=== PATIENT | male | born 1995 | race Caucasian/White ===

== ENCOUNTER 2017-07-23 20:37 | Emergency (ER) | payer OTHER ==
[~2017-07-23] VITALS: Ht 170.2 cm; Wt 152.0 kg
[2017-07-23 20:45] VITALS: TEMP 36.5; Ht 170.2 cm; Wt 152.0 kg
[2017-07-23] MEDS ORDERED: DILTIAZEM HCL 5 MG/ML 5 ML VIAL IV STA (21:11)
[2017-07-23] MEDS ORDERED: DILTIAZEM BOLUS / DRIP IV STA (21:24)
--- NOTE | 2017-07-23 21:29 | DIAGNOSTIC IMAGING REPORT ---
SINGLE VIEW CHEST CLINICAL HISTORY: Fever. Sepsis. FINDINGS: 2 AP, portable, upright chest radiographs are obtained. No prior studies are available for comparison at the time of dictation. The examination is degraded by portable technique and patient rotation. The cardiomediastinal silhouette is unremarkable. The lungs and pleural spaces are clear. No pneumothorax is seen. The bony thorax is grossly intact. IMPRESSION: No active disease in the chest. Electronically signed by: Yvon Mckenna M.D. 07/23/2017 9:28 PM Dictated Date/Time: 07/23/2017 9:28 PM
[2017-07-23 21:37] LABS: BASO % 0.4 %; BASO ABS # 0.05 K/uL (0-0.2); EOS ABS # 0.36 K/uL (0-0.5); HEMATOCRIT 46.8 % (42-52); HEMOGLOBIN 16.7 g/dL (14.0-18.0); IG# 0.12 K/uL (0.00-0.02); LYMPH % 33.2 %; LYMPH ABS # 4.02 K/uL (1.2-3.4); MEAN CELL VOLUME 83.9 fL (80-100); MEAN CORPUSCULAR HEMOGLOBIN 29.9 pg (25-34); MEAN CORPUSCULAR HGB CONC 35.7 g/dl (32-36); MEAN PLATELET VOLUME 10.2 fL (7.4-10.4); MONO % 9.7 %; MONO ABS # 1.18 K/uL (0.11-0.59); NEUT % 52.7 %; NEUT ABS # 6.38 K/uL (1.4-6.5); PLATELET COUNT 298 K/uL (130-400); RED CELL DISTRIBUTION WIDTH CV 12.8 % (11.5-14.5); RED CELL DISTRIBUTION WIDTH SD 38.2 fL (36.4-46.3); WHITE BLOOD COUNT 12.11 K/uL (4.8-10.8)
[2017-07-23] MEDS: DILTIAZEM HCL INJ 125 MG in DEXTROSE 5% 100ML IV PRN ×2 (21:44→23:25)
[2017-07-23 22:05] VITALS: O2SAT 97
[2017-07-23 22:46] LABS: ALBUMIN 3.8 gm/dl (3.4-5.0); ALT/SGPT 73 U/L (12-78); BLOOD UREA NITROGEN 11 mg/dl (7-18); CALCIUM 9.3 mg/dl (8.5-10.1); CARBON DIOXIDE 24 mmol/L (21-32); CREATININE 0.82 mg/dl (0.60-1.40); GLUCOSE 107 mg/dl (70-99); LIPASE 93 U/L (73-393); SODIUM 138 mmol/L (136-145)
[2017-07-23 22:48] LABS: INR 0.9 (0.9-1.1); PTT PATIENT 24.5 SECONDS (21.0-31.0)
[2017-07-23 22:57] LABS: ALKALINE PHOSPHATASE 75 U/L (45-117); AST/SGOT 35 U/L (15-37); CKMB 1.8 ng/ml (0.5-3.6); TOTAL PROTEIN 8.1 gm/dl (6.4-8.2)
[2017-07-23 23:04] VITALS: BP 125/102; PULSE 106; O2SAT 98
--- NOTE | 2017-07-23 23:23 | EMERGENCY ROOM VISIT NOTE ---
History Report prepared by Paulaibnayely: Reji Melo Under the Supervision of: Dr. Fran Cooper D.O. First contact with patient: 20:55 Chief Complaint: IRREGULAR HEARTBEAT Stated Complaint: IRREGULAR AND FAST HEART BEAT AFTER SLEEPING History of Present Illness The patient is a 22 year old male who presents to the Emergency Room with complaints of a constant irregular heart beat that suddenly began 15 hours ago. He rates his pain as 0/10. The patient reports that he went to class, took a nap , and states that he woke up the same sensation of an irregular and fast heart beat this afternoon. 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 He states that he was heavily drinking on 07/19 and had a hangover the next day. Source of History: patient Onset: 15 hours ago Position: other (heart) Symptom Intensity: pain rated as 0/10 Quality: other (irregular heart rate) Timing: constant Associated Symptoms: + SOB Review of Systems See HPI for pertinent positives & negatives. A total of 10 systems reviewed and were otherwise negative. Family History Cancer Social History Smoking Status: Current Some Day Smoker Alcohol Use: heavy Marital Status: single Occupation Status: student Current/Historical Medications No Active Prescriptions or Reported Meds Allergies Coded Allergies: Azithromycin (Unverified Allergy, Severe, hives, 07/23/17) Physical Exam Vital Signs Date Time Temp Pulse Resp B/P (MAP) Pulse Ox O2 Delivery O2 Flow Rate FiO2 07/23/17 23:04 106 15 125/102 98 Room Air 07/23/17 22:50 98 07/23/17 22:05 97 Room Air 07/23/17 21:32 103 16 137/99 97 Room Air 07/23/17 21:00 149 07/23/17 20:57 98 Room Air 07/23/17 20:45 36.5 105 20 141/78 97 Room Air Physical Exam CONSTITUTIONAL/VITAL SIGNS: Reviewed / noted above. GENERAL: Non-toxic in appearance. INTEGUMENTARY: Warm, dry, and [place]. HEAD: Normocephalic. EYES: without scleral icterus or trauma. ENT/OROPHARYNX: clear and moist. LYMPHADENOPATHY/NECK: Is supple without lymphadenopathy or meningismus. RESPIRATORY: Lungs clear and equal. CARDIOVASCULAR: Rapid Irregular heart rate. GI/ABDOMEN: Soft and nontender. No organomegaly or pulsatile mass. No rebound or guarding. Normal bowel sounds. EXTREMITIES: Warm and well perfused. BACK: No CVA tenderness. NEUROLOGICAL: Intact without focal deficits. PSYCHIATRIC: normal affect. MUSCULOSKELETAL: Normally developed with good muscle tone. Medical Decision & Procedures ER Provider Diagnostic Interpretation: Radiology results as stated below per my review and radiologist interpretation: SINGLE VIEW CHEST CLINICAL HISTORY: Fever. Sepsis. FINDINGS: 2 AP, portable, upright chest radiographs are obtained. No prior studies are available for comparison at the time of dictation. The examination is degraded by portable technique and patient rotation. The cardiomediastinal silhouette is unremarkable. The lungs and pleural spaces are clear. No pneumothorax is seen. The bony thorax is grossly intact. IMPRESSION: No active disease in the chest. Electronically signed by: Yvon Mckenna M.D. 07/23/2017 9:28 PM Dictated Date/Time: 07/23/2017 9:28 PM Laboratory Results 07/23/17 21:10 Red Blood Count 5.58, Mean Corpuscular Volume 83.9, Mean Corpuscular Hemoglobin 29.9, Mean Corpuscular Hemoglobin Concent 35.7, Mean Platelet Volume 10.2, Neutrophils (%) (Auto) 52.7, Lymphocytes (%) (Auto) 33.2, Monocytes (%) (Auto) 9.7, Eosinophils (%) (Auto) 3.0, Basophils (%) (Auto) 0.4, Neutrophils # (Auto) 6.38, Lymphocytes # (Auto) 4.02, Monocytes # (Auto) 1.18, Eosinophils # (Auto) 0.36, Basophils # (Auto) 0.05 07/23/17 22:09 Test 07/23/17 21:10 07/23/17 22:09 07/23/17 22:15 White Blood Count 12.11 K/uL (4.8-10.8) Red Blood Count 5.58 M/uL (4.7-6.1) Hemoglobin 16.7 g/dL (14.0-18.0) Hematocrit 46.8 % (42-52) Mean Corpuscular Volume 83.9 fL (80-100) Mean Corpuscular Hemoglobin 29.9 pg (25-34) Mean Corpuscular Hemoglobin Concent 35.7 g/dl (32-36) Platelet Count 298 K/uL (130-400) Mean Platelet Volume 10.2 fL (7.4-10.4) Neutrophils (%) (Auto) 52.7 % Lymphocytes (%) (Auto) 33.2 % Monocytes (%) (Auto) 9.7 % Eosinophils (%) (Auto) 3.0 % Basophils (%) (Auto) 0.4 % Neutrophils # (Auto) 6.38 K/uL (1.4-6.5) Lymphocytes # (Auto) 4.02 K/uL (1.2-3.4) Monocytes # (Auto) 1.18 K/uL (0.11-0.59) Eosinophils # (Auto) 0.36 K/uL (0-0.5) Basophils # (Auto) 0.05 K/uL (0-0.2) RDW Standard Deviation 38.2 fL (36.4-46.3) RDW Coefficient of Variation 12.8 % (11.5-14.5) Immature Granulocyte % (Auto) 1.0 % Immature Granulocyte # (Auto) 0.12 K/uL (0.00-0.02) Prothrombin Time 9.8 SECONDS (9.0-12.0) Prothromb Time International Ratio 0.9 (0.9-1.1) Activated Partial Thromboplast Time 24.5 SECONDS (21.0-31.0) Partial Thromboplastin Ratio 0.9 D-Dimer 320 ug/L FEU (0-500) Anion Gap 9.0 mmol/L (3-11) Est Creatinine Clear Calc Drug Dose 200.8 ml/min Estimated GFR () 145.5 Estimated GFR (Non- 125.5 BUN/Creatinine Ratio 13.2 (10-20) Calcium Level 9.3 mg/dl (8.5-10.1) Total Bilirubin 0.3 mg/dl (0.2-1) Direct Bilirubin < 0.1 mg/dl (0-0.2) Aspartate Amino Transf (AST/SGOT) 35 U/L (15-37) Alanine Aminotransferase (ALT/SGPT) 73 U/L (12-78) Alkaline Phosphatase 75 U/L (45-117) Total Creatine Kinase 148 U/L (39-308) Creatine Kinase MB 1.8 ng/ml (0.5-3.6) Creatine Kinase MB Ratio 1.2 (0-3.0) Troponin I < 0.015 ng/ml (0-0.045) Total Protein 8.1 gm/dl (6.4-8.2) Albumin 3.8 gm/dl (3.4-5.0) Lipase 93 U/L (73-393) Thyroid Stimulating Hormone (TSH) 2.560 uIu/ml (0.300-4.500) Urine Color YELLOW Urine Appearance CLEAR (CLEAR) Urine pH 6.0 (4.5-7.5) Urine Specific [place] 1.011 (1.000-1.030) Urine Protein NEG (NEG) Urine Glucose (UA) NEG (NEG) Urine Ketones NEG (NEG) Urine Occult Blood NEG (NEG) Urine Nitrite NEG (NEG) Urine Bilirubin NEG (NEG) Urine Urobilinogen NEG (NEG) Urine Leukocyte Esterase NEG (NEG) Laboratory results as stated above per my review. ECG Per My Interpretation Indication: other (irregular heart beat) Rate (beats per minute): 145 Rhythm: atrial fibrillation Findings: no ectopy, other (No ST elevation) Change: Repeat EKG at 2127: Normal sinus rhythm, rate of 98, no acute injury, and no ectopy. ED Course 2054: Previous medical records were reviewed. The patient was evaluated in room A11B. A complete history and physical examination was performed. 2110: Cardizem Inj, 20 mg, IV. 2123: Cardizem Bolus/Drip, 1 ea, IV. 2129: Diltiazem HCl 125 mg/Dextrose, 125 ml, IV. 2344: On reevaluation, the patient is resting. I discussed the results and findings with the patient. He verbalized agreement of the treatment plan. He was discharged home. Medical Decision the differential was considered includes acute myocardial infarction, acute coronary syndrome, myocarditis, pericarditis, pericardial effusions /tamponade, esophageal perforation, thoracic aortic dissection, pulmonary embolism, pneumonia, pneumothorax, pancreatitis, shingles, acute cholecystitis, perforated abdominal viscus. This is a 22-year-old male who presents to the ED with a chief complaint of heart palpitations. This patient states that he awoke with symptoms earlier this morning and felt like his heart was beating fast. After class today, he took a nap and when he woke this afternoon, he felt the same. The patient feels like his heart is racing rapidly and sometimes irregular. He denies any other symptoms. He does report that he has been drinking heavily on Friday and had a bad hangover on Friday. He denied having any significant symptoms with regards to palpitations on Friday, Friday or Friday. The patient has no other specific complaints at this time. His vital signs are stable. His heart rate was elevated and irregular. A 12-lead EKG shows atrial fibrillation at a rate of 145 without acute ischemic changes. CBC is unremarkable, chest x-ray was negative for acute disease, d-dimer is negative, complete metabolic panel was unremarkable, troponin was negative, TSH is normal, urine did not show infection. The patient was evaluated. Prior to the patient being given the Cardizem that was ordered, he spontaneously converted to a sinus rhythm. The patient did not have any recurrence during his ED stay. His symptoms resolved. He was felt to be stable for discharge. He was told the results. Cardiology follow-up was recommended. Medication Reconcilliation Current Medication List: was personally reviewed by me Blood Pressure Screening Patient's blood pressure: Elevated blood pressure Blood pressure disposition: Elevated BP felt to be situational Impression Primary Impression: Paroxysmal atrial fibrillation Scribe Attestation The scribe's documentation has been prepared under my direction and personally reviewed by me in its entirety. I confirm that the note above accurately reflects all work, treatment, procedures, and medical decision making performed by me. Departure Information Dispostion Home / Self-Care Prescriptions No Active Prescriptions or Reported Meds Referrals No Doctor, Assigned (PCP) Ulises Toure M.D. Forms HOME CARE DOCUMENTATION FORM, IMPORTANT VISIT INFORMATION Patient Instructions Atrial Fibrillation, My [facility] Additional Instructions Your EKG today showed atrial fibrillation with a high heart rate. This is sometimes associated with excessive alcohol consumption. Your heart rate returned to a normal pattern shortly after you arrived. Your blood work was unremarkable. Avoid excessive alcohol consumption. Follow-up with cardiology. Dr. Toure listed. Follow-up with your doctor for further care and evaluation in 1-2 days. Return to the emergency department for worsening or new symptoms or any concerns. You have been examined and treated today on an emergency basis only. This is not a substitute for, or an effort to provide, complete comprehensive medical care. It is impossible to recognize and treat all injuries or illnesses in a single emergency department visit. It is therefore important that you follow up closely with your doctor. Call as soon as possible for an appointment.
== END 2017-07-23 23:30 | disposition home or self-care (01) ==
LOC: C.EDB 20:38 → C.EDA 23:30
DX: I48.0 Paroxysmal atrial fibrillation (principal); F17.200 Nicotine dependence, unspecified, uncomplicated